=== PATIENT | male | born 1955 | race Two or more races ===

== ENCOUNTER 2020-03-13 08:03 | Day surgery (SDC) | payer OTHER ==
--- NOTE | 2020-03-12 13:02 | Pre-Procedure Note/Attestation ---
Pre-Procedure Note/Attestation Complete Prior to Procedure Planned Procedure: right Procedure Narrative: rt elbow lateral epicondylar release Indications for Procedure Pre-Operative Diagnosis: rt elbow lateral epicondylitis Attestation I attest that I discussed the nature of the procedure; its benefits; risks and complications; and alternatives (and the risks and benefits of such alternatives ), prior to the procedure, with the patient (or the patient's legal quality audit representative). I attest that, if there was a reasonable possibility of needing a blood transfusion, the patient (or the patient's legal quality audit representative) was given the [facility] standardized written summary, pursuant to the [employer] Blood Safety Act ([place] Health and Safety Code # 1645, as amended). I attest that I re-evaluated the patient just prior to the surgery and that there has been no change in the patient's H&P, except as documented below: NONE Caio Maza MD March 12, 2020 13:02
[2020-03-13] VITALS (12 sets, daily range): BP systolic 111–145; BP diastolic 66–90
[~2020-03-13] VITALS: Ht 154.9 cm; Wt 68.0 kg
[~2020-03-13 08:03] MED LIST: HYDROcodone/Acetamin 5/325 tab ORAL PRN; HYDROmorphone 1mg/ml Carpuject SUBQ PRN; LR 1000ml ONE; METFORMIN HCL500 M1 ORAL; NS Irrig 1000ml ONE; Sterile Water Irrig 1000ml IRRIG ONE; Tylenol #3 tab (300mg/30mg) ORAL PRN; ceFAZolin 1gm IVPB IVPB ONE; celeBREX 200mg Cap **SURGERY PATIENTS ONLY ORAL ONE; oxyCONTIN 10mg tab ORAL ONE
[2020-03-13] MEDS ORDERED: oxyCONTIN 10mg tab ORAL ONE (08:53)
[2020-03-13] MEDS ORDERED: celeBREX 200mg Cap **SURGERY PATIENTS ONLY ORAL ONE (08:53)
[2020-03-13] MEDS ORDERED: LR 1000ml 1,000 ML IVLG SCH (09:29)
[2020-03-13] MEDS ORDERED: Labetalol 5mg/ml 20ml vial IV PRN (09:30)
[2020-03-13] MEDS ORDERED: fentaNYL 100 mcg/2 mL IV PRN (09:30)
[2020-03-13] MEDS ORDERED: Meperidine 25mg/0.5ml Inj (FOR RIGORS ONLY) IV PRN (09:30)
[2020-03-13] MEDS ORDERED: oxyCODONE HCL/Acetaminophen 5/325mg ORAL PRN (09:30)
[2020-03-13] MEDS ORDERED: DiphenhydrAMINE 50mg/ml Inj IVP PRN (09:30)
[2020-03-13] MEDS ORDERED: Metoclopramide 10mg/2ml Inj IVP PRN (09:30)
[2020-03-13] MEDS ORDERED: Hydromorphone 0.5mg/0.5ml inj IVP PRN (09:30)
[2020-03-13] MEDS ORDERED: HYDROcodone/Acetamin 5/325 tab ORAL PRN (09:30)
[2020-03-13] MEDS ORDERED: Ketorolac 30mg Inj IV PRN ×2 (09:30)
[2020-03-13] MEDS ORDERED: Midazolam 2mg/2ml Inj IVP PRN (09:30)
[2020-03-13] MEDS ORDERED: LORazepam Inj 2mg/ml 1ml IV PRN (09:30)
[2020-03-13] MEDS ORDERED: HYDROcodone/Acetamin 7.5/325 tab ORAL PRN (09:30)
[2020-03-13] MEDS ORDERED: Atropine Sulfate 0.4mg/ml inj IVP PRN (09:30)
[2020-03-13] MEDS ORDERED: Acetaminophen (Non formulary) 100 ML IV ONE (09:30)
--- NOTE | 2020-03-13 09:38 | Anethesia Preoperative Eval ---
Anesthesia Pre-op PMH/ROS General Date of Evaluation: March 13, 2020 Time of Evaluation: 09:22 Anesthesiologist: Geovanna ASA Score: ASA 3 Mallampati Score Class I : Soft palate, uvula, fauces, pillars visible Class II: Soft palate, uvula, fauces visible Class III: Soft palate, base of uvula visible Class IV: Only hard plate visible Mallampati Classification: Class II Surgeon: Shaunna Diagnosis: R Elbow Pain Surgical Procedure: R Elbow Lateral Epicondylar Release Anesthesia History: none Family History: no anesthesia problems Allergies: Coded Allergies: No Known Allergies (Unverified , 03/09/20) Medications: see eMAR Patient NPO?: Yes Past Medical History Cardiovascular: Reports: HTN Endocrine: Reports: DM Anesthesia Pre-op Phys. Exam Physician Exam Last Vital Signs Date Time Temp Pulse Resp B/P (MAP) Pulse Ox O2 Delivery O2 Flow Rate FiO2 03/13/20 08:46 Room Air 03/13/20 08:42 97.4 68 18 134/78 98 Constitutional: NAD Neurologic: CN 2-12 intact Cardiovascular: RRR Respiratory: CTA Gastrointestinal: S/NT/ND Airway Exam Mallampati Score: Class II MO: full ROM: limited Teeth: missing, intact Anesthesia Pre-op A/P Risk Assessment & Plan Assessment: ASA 3 Plan: GA, SED Status Change Before Surgery: No Pre-Antibiotics Dru Gram Ancef IV Given Within 1 Hr of Incision: Yes Time Given: 09:56 James Austin MD March 13, 2020 09:38
--- NOTE | 2020-03-13 09:40 | Immediate Post-Op Evaluation ---
Immediate Post-Op Evalulation Immediate Post-Op Evalulation Procedure: R Elbow Lateral Epicondylar Release Date of Evaluation: March 13, 2020 Time of Evaluation: 11:00 IV Fluids: 300 LR Blood Products: 0 Estimated Blood Loss: 16 Urinary Output: 0 Blood Pressure Systolic: 119 Blood Pressure Diastolic: 68 Pulse Rate: 84 Respiratory Rate: 16 O2 Sat by Pulse Oximetry: 100 Temperature (Fahrenheit): 97.2 Pain Score (1-10): 2 Nausea: No Vomiting: No Complications 0 Patient Status: awake, reacts, patent, none Hydration Status: adequate Dru Gram Ancef IV Given Within 1 Hr of Incision: Yes Time Given: 09:56 James Austin MD March 13, 2020 09:40
--- NOTE | 2020-03-13 09:40 | 48 Hour Post Anesthesia Eval ---
Post Anesthesia Evaluation Procedure: R Elbow Lateral Epicondylar Release Date of Evaluation: March 13, 2020 Time of Evaluation: 13:23 Blood Pressure Systolic: 145 0: 73 Pulse Rate: 67 Respiratory Rate: 18 Temperature (Fahrenheit): 98 O2 Sat by Pulse Oximetry: 100 Airway: patent Nausea: No Vomiting: No Pain Intensity: 2 Hydration Status: adequate Cardiopulmonary Status: Stable Mental Status/LOC: patient returned to baseline Follow-up Care/Observations: 0 Post-Anesthesia Complications: 0 Follow-up care needed: ready to discharge James Austin MD March 13, 2020 09:40
[2020-03-13] MEDS ORDERED: Bacitracin 50000 Units Vial ONE (09:43)
[2020-03-13] MEDS ORDERED: NeoSporin Gu Irrig 1ml Amp IRRIG ONE (09:43)
[2020-03-13] MEDS ORDERED: Lidocaine 1% 10mg/ml/Epi 0.005mg/ml 30ml vial INJ ONE (09:43)
[2020-03-13] MEDS ORDERED: Lidocaine 1% MPF 10mg/ml 5ml ONE (09:44)
[2020-03-13] MEDS ORDERED: Sodium Chloride 10ml vial INJ ONE (09:44)
[2020-03-13] MEDS ORDERED: fentaNYL 100 mcg/2 mL IV ONE (09:45)
[2020-03-13] MEDS ORDERED: Midazolam 2mg/2ml Inj ONE (09:45)
[2020-03-13] MEDS ORDERED: Bupivacaine w/Epi 0.5% 30ml Vial INJ ONE (10:13)
--- NOTE | 2020-03-13 10:37 | Brief Operative Note ---
Immediate Post Operative Note Operative Note Chief Complaint: right elbow pain Pre-op Diagnosis: rt elbow lateral epicondylitis Procedure: rt elbow lateral epicondylar release Post-op Diagnosis: same as pre-op Findings: consistent w/pre-op dx studies Surgeon: md jonna Senior Applications Engineer: sania puente Anesthesiologist: md mena Anesthesia: general Specimen: none Complications: none Condition: stable Fluids: ns Estimated Blood Loss: minimal Drains: none Implant(s) used?: No Palmira Puente March 13, 2020 10:37
[2020-03-13] MEDS ORDERED: D5 1/2NS 1,000 ML IV SCH (12:00)
--- NOTE | 2020-03-13 17:30 | Operative Note - Dictated ---
DATE OF OPERATION: 03/13/2020 PREOPERATIVE DIAGNOSIS: Right elbow lateral epicondylitis, chronic, unresponsive to conservative treatment. POSTOPERATIVE DIAGNOSIS: Right elbow lateral epicondylitis, chronic, unresponsive to conservative treatment. PROCEDURE: 1. Right elbow lateral epicondylar release. 2. Right elbow fractional lengthening of the ECRB tendon. 3. Right shoulder repair of the common extensor tendon to its origin. SURGEON: Caio Maza MD. WIND TUNNEL TECHNICIAN: Palmira Lacey PA-C. ANESTHESIOLOGIST: James Austin MD. ANESTHESIA: General LMA anesthesia. ESTIMATED BLOOD LOSS: Less than 20 mL. TOURNIQUET TIME: 35 minutes. COMPLICATIONS: None. BRIEF HISTORY: The patient is a pleasant 64-year-old gentleman, who has had chronic lateral epicondylitis. He had a hard time lifting and had nighttime pain. He was treated conservatively with physical therapy, injections, and continued to be symptomatic. 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 OPERATIVE PROCEDURE: The patient was brought to the operating room table and was placed supine. All pressure points were well padded. General LMA anesthesia was induced and the right arm was prepped and draped in usual sterile fashion and was exsanguinated. Tourniquet was inflated to 275 mmHg. The area of the incision was injected with 0.5% Marcaine with epinephrine along with 1% lidocaine in equal amount a total of 8 mL. The incision was taken through the subcutaneous tissue distal to the lateral epicondylar area by about 2.5 cm. The common extensor tendon was identified and an incision was made in line with the tendon and fibers were and the dissection was taken deep to the common extensor tendon. At this point, the ECRB tendon could be visualized. The ECRB tendon was then fractionally released at a junction and debridement was taken all the way to the lateral epicondylar area. The fibrovascular proliferation was debrided using a rongeur. Once this was completed, wounds were thoroughly irrigated. The common extensor tendon was then repaired using #1 Vicryl suture. Subcutaneous tissue was closed using 2-0 Vicryl suture and skin was closed with 3-0 Monocryl suture. All lap counts and instrument counts were correct. Caio Sterling Maza DR: AGUSTÍN JOB#: [id number] CC:
== END 2020-03-13 12:50 | disposition home or self-care (01) ==
LOC: SUR 08:03
DX: M77.11 Lateral epicondylitis, right elbow (principal); E11.9 Type 2 diabetes mellitus without complications; I10 Essential (primary) hypertension
CPT/HCPCS: 24359; 94003; J0131; J0690; J2250; J2405; J2704; J3010; J7120; 94150